=== PATIENT | male | born 1960 | race African-American/Black ===

== ENCOUNTER 2022-09-19 12:09 | Emergency (ER) | payer MEDICAID ==
[~2022-09-19] VITALS: Ht 167.6 cm; Wt 75.0 kg
[2022-09-19 12:27] VITALS: BP 87/58
== END 2022-09-19 17:22 | disposition home or self-care (01) ==
LOC: ER 12:16
DX: K40.90 Unilateral inguinal hernia, without obstruction or gangrene, not specified as recurrent (principal)
CPT/HCPCS: 99281